=== PATIENT | male | born 1950 | race Caucasian/White ===

== ENCOUNTER 2019-02-04 07:22 | Inpatient (IN) | payer MEDICARE, OTHER ==
[~2019-02-04] VITALS: Ht 185.4 cm; Wt 97.0 kg
[~2019-02-04 07:22] MED LIST: ASPI81CH PO; Flonase 0.05% N16 GM; LOSA50 PO; TELM80 PO
--- NOTE | 2019-02-05 09:31 | NUR ---
Ambulatory in Day Surgery. History, Chart, Medications and Allergies reviewed before start of procedure. Lungs clear T/O to Auscultation. Patient confirms NPO status and agrees with scheduled surgery. Pre-Op teaching done. Pt verbalizes understanding. Patient reports completing Chlorhexadine shower X2 prior to admission to hospital.
--- NOTE | 2019-02-05 17:36 | NUR ---
SHIFT SUMMARY PT'S PAIN WELL CONTROLLED, DECLINES PO PAIN MEDS WITH DINNER. AMBULATED WITH THERAPY, UP IN CHAIR FOR DINNER. MONITORING FOR VOID.
--- NOTE | 2019-02-06 03:11 | NUR ---
Patient A/O x4. VSS. No complaints of pain. Tolerating PO. Ambulating to bathroom with standby assist and FWW. Voiding freely. Aquacell dressing in place; D/C/I. Resting comfortably. Medicated as ordered.
[2019-02-06 04:52] LABS: BASOPHILS ABSOLUTE AUTO 0.02 K/mm3 (0.00-0.23); BASOPHILS PERCENT AUTO 0 % (0-2); EOSINOPHILS PERCENT AUTO 0 % (0-6); Hematocrit 37.2 % (37.0-53.0); Hemoglobin 12.3 g/dL (13.5-17.5); IMMATURE GRAN ABSOLUTE AUTO 0.07 K/mm3 (0.00-0.10); IMMATURE GRAN PERCENT AUTO 1 % (0-1); LYMPHOCYTES ABSOLUTE AUTO 1.05 K/mm3 (0.84-5.20); LYMPHOCYTES PERCENT AUTO 8 % (21-46); MONOCYTES ABSOLUTE AUTO 0.92 K/mm3 (0.16-1.47); MONOCYTES PERCENT AUTO 7 % (4-13); Mean Corpuscular HGB 33.2 pg (26.0-34.0); Mean Corpuscular HGB Conc 33.1 g/dL (31.5-36.5); Mean Corpuscular Volume 101 fL (80-100); Mean Platelet Volume 10.4 fL (9.1-12.4); NEUTROPHILS ABSOLUTE AUTO 10.95 K/mm3 (1.96-9.15); NEUTROPHILS PERCENT AUTO 84 % (41-73); Platelet Count 150 K/mm3 (150-400); RDW Coefficient Variation 11.7 % (11.7-14.2); RDW Standard Deviation 42.4 fL (35.1-46.3); White Blood Cell Count 13.01 K/mm3 (4.00-11.30)
[2019-02-06 05:12] LABS: Anion Gap 7 mmol/L (6-16); Blood Urea Nitrogen 18 mg/dL (8-24); Bun/Creatinine Ratio 19.7 (12.0-20.0); CO2, Blood 25 mmol/L (21-32); Calcium, Blood 8.2 mg/dL (8.5-10.1); Chloride, Blood 106 mmol/L (98-108); Creatinine, Blood 0.92 mg/dL (0.60-1.20); Glomerular Filtration Rate >60 (60-); Glucose, Blood 105 mg/dL (70-99); Potassium, Blood 4.3 mmol/L (3.5-5.5); Sodium, Blood 138 mmol/L (136-145)
--- NOTE | 2019-02-06 10:20 | NUR ---
AM NOTE PT WORKED WITH THERAPY THIS MORNING, REPORTS TOLERATING ACT WELL. DECLINES PAIN AT THIS TIME. CURRENTLY UP IN CHAIR. PROVIDER IN TO SEE PT THIS MORNING. PLAN FOR DISCHARGE.
[2019-02-06] MEDS ORDERED: Aspir 8181 MG PO (11:15)
[2019-02-06] MEDS ORDERED: CELE100 PO ×2 (11:17→11:18)
[2019-02-06] MEDS ORDERED: Percocet 5-3251 EACH PO (11:17)
--- NOTE | 2019-02-06 11:52 | NUR ---
DISCHARGE SUMMARY PT DISCHARGED HOME TODAY AT 1130 WITH SPOUSE. D/C INSTRUCTIONS, DRESSINGS, SCRIPTS, AND PERSONAL BELONGINGS GIVEN TO PATIENT. PAIN WELL CONTROLLED WITH PO MEDICATIONS. PT CLEARED THERAPY TODAY AND HAS A STEADY GATE.
== END 2019-02-06 11:30 | disposition home or self-care (01) | DRG 470 ==
LOC: SURS 02-05 08:30 → PRE IP 02-05 08:30 → SURS 02-05 14:14
PROVIDERS: ADMIT Orthopaedic Surgery
PROC: 0SR904A Replacement of Right Hip Joint with Ceramic on Polyethylene Synthetic Substitute, Uncemented, Open Approach (ICD-10-PCS; principal; 2019-02-05 10:30)
DX: M16.11 Unilateral primary osteoarthritis, right hip (principal); I10 Essential (primary) hypertension; Z79.82 Long term (current) use of aspirin; Z87.891 Personal history of nicotine dependence
CPT/HCPCS: 36415; 72170; 80048; 85025; 86850; 86900; 86901; 88300; 97110; 97116; 97162; C1776; J0171; J0690; J0735; J1100; J1170; J1885; J2250; J2370; J2405; J2704; J2795; J3010; J7120

== ENCOUNTER → 2020-10-21 | Outpatient (CLI) | payer MEDICARE, OTHER ==
[~2020-10-21] MED LIST changes: +Aspir 8181 MG PO; +CELE100 PO; +Percocet 5-3251 EACH PO
[2020-10-23 10:45] LABS: Stool Occult Bld Immuno 1 Negative (NEGATIVE)
== END | disposition home or self-care (01) ==
LOC: LAB SHORT 14:56 → LAB 14:56 → LAB SHORT 10-22 14:55
PROVIDERS: Family Medicine
DX: Z12.11 Encounter for screening for malignant neoplasm of colon (principal)
CPT/HCPCS: G0328

== ENCOUNTER → 2023-11-21 | Outpatient (CLI) | payer OTHER ==
[2023-11-22 12:16] LABS: Stool Occult Bld Immuno 1 Negative (NEGATIVE)
== END | disposition home or self-care (01) ==
LOC: LAB 14:00 → LAB SHORT 14:00
PROVIDERS: Family Medicine
DX: Z12.11 Encounter for screening for malignant neoplasm of colon (principal)
CPT/HCPCS: G0328